=== PATIENT | male | born 1955 | race Caucasian/White ===

== ENCOUNTER 2025-05-31 06:19 | Observation (INO) ==
--- NOTE | 2025-05-31 06:40 | Emergency Department Note ---
Impression & Plan Sinus bradycardia, Cardiomyopathy, Ventricular tachycardia (paroxysmal) ED Provider Note NAME: LETY LAGUNAS AGE: 70 SEX: M : 1955 ARRIVES VIA: Walk-In INFORMANT: Patient ED PROVIDER(S): Avtar Escoto DO CHIEF COMPLAINT: Lightheaded HPI: Patient is a 70-year-old male with a past medical history of cardiomyopathy, hypertension, hyperlipidemia, and sinus bradycardia who presents to the ER for lightheadedness. He notes he is following with cardiology and just got a report back from a Zio patch. It shows that he has had over 120 episodes of V. tach. Longest run was about 8 beats. His rates are about 200. He is also had multiple episodes of SVT. He currently denies any chest pain or shortness of breath. No dysuria, urgency or frequency. He notes lightheadedness started around 5 AM and he was told to come in for any new or worsening symptoms. ADDITIONAL HISTORY OBTAINED: Per HPI Chronic Medical/Social Conditions Affecting Care: Per HPI PAST MEDICAL HISTORY:See Below PAST SURGICAL HISTORY:See Below FAMILY HISTORY:See Below SOCIAL HISTORY:See Below HOME MEDICATIONS:See Below ALLERGIES:See Below VITALS:See Below PHYSICAL EXAMINATION: GENERAL: Sitting up in bed, alert, well appearing, well nourished, no distress, non-toxic EYE EXAM: normal conjunctiva. PERRL and EOM's grossly intact. OROPHARYNX: no exudate, no erythema, lips, buccal mucosa, and tongue normal and mucous membranes are moist NECK: supple, no nuchal rigidity, no adenopathy, non-tender LUNGS: Clear to auscultation. Normal chest wall mechanics HEART: no murmurs, S1 normal and S2 normal ABDOMEN: abdomen soft, non-tender, normo-active bowel sounds, no masses, no rebound or guarding. UPPER EXTREMITIES: upper extremities are grossly normal. LOWER EXTREMITIES: No pitting edema. NEURO EXAM: Normal sensorium, cranial nerves II-XII intact, normal speech, no weakness of arms, no weakness of legs. MEDICAL DECISION MAKING: Patient is a 70-year-old male with a past medical history as described above who presents to the ER with external records which shows a Zio patch from May 22 which had over 120 episodes of V. tach. He is feeling lightheaded and was instructed to come in for any new or worsening symptoms and the lightheadedness is new. IV was established and blood work was obtained. Labs showed no significant leukocytosis or anemia. BMP with slightly elevated chloride at 110. Glucose at 100. LFTs bilirubin was unremarkable. Lipase was normal. Troponin was negative. Chest x-ray unremarkable. EKG with poor baseline. Patient was discussed with the hospitalist for further evaluation management and treatment for an observation with a history of V. tach and lightheadedness. He remained on the monitor in the ER and had no episodes of VT. Consults/Care Managements Discussions: Per MDM Triage Nursing notes reviewed. Limited review of prior medical records performed Vital Signs: reviewed and remarkable for no significant abnormalities Differential diagnosis: Cardiac ischemia, aortic dissection, pulmonary embolism, pneumothorax, pneumonia, pericarditis, myocarditis, esophageal rupture, GERD, cholecystitis, pancreatitis, musculoskeletal, as well as other pathologies. ER treatment provided: See below Diagnostics interpreted by me include EKG and cardiac monitoring as listed below: -Cardiac Monitoring: An order was placed for continuous cardiac monitoring. The monitor shows a rate of 62 with sinus rhythm. -ECG: Sinus rhythm rate of 61 Normal axis PVCs QTc 414 -Laboratory studies:Interpreted by me as stated above in MDM and shown below. Imaging studies: Xrays: As interpreted by me: Portable AP upright 1 view of the chest shows no focal infiltrate CTs show: none Procedures:none Critical Care: None Past Med/Surg History Problem List (Updated 05/31/25 @ 10:42 by Avtar Escoto DO) Ventricular tachycardia (paroxysmal) (Acute) Dizziness Moderate aortic regurgitation Cardiomyopathy (Acute) Sinus bradycardia (Acute) Systolic hypertension Hyperlipidemia Sleeping difficulty Hypertriglyceridemia Medical History (HFpEF) heart failure with preserved ejection fraction CAD (coronary artery disease) Nonobstructive History of BPH History of COVID-19 ~2021, no residual symptoms History of hypertension Hx of colonic polyps Hx of hyperlipidemia Hx of sinus bradycardia Hx of temporomandibular joint disorder Occasional clicking/crunching, no locking Prediabetes Per cardio records Surgical History Hx of arthroscopy of right knee Hx of cardiac cath (2020) No stents Hx of colonoscopy S/P knee surgery duplicate S/P tonsillectomy S/P wisdom tooth extraction Family History Brother Non Hodgkin's lymphoma Father Myocardial infarction Denies family history of Colon cancer Ovarian cancer Prostate cancer Breast cancer Social History Smoking Status: Never smoker Second Hand Exposure: No; Do You Dip or Chew Tobacco: No; Hx Alcohol Use: No Hx Substance Use: No Preferred Language: Macedonian Communication Ability: Effective Visual Impairment: No Limitations 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 Beliefs That Will Affect Care: None marital status: Current Living Situation: Spouse current occupational status: retired Feels Safe at Home: Yes Childhood Exposure to Second-Hand Smoke: No Dental Care, Regularly: Yes Physical Activity Frequency: 5-6 Times per Week Seatbelt Use: always Sunscreen Use: Yes Assistive Devices: Glasses Allergies Allergies Allergy/AdvReac Type Severity Reaction Status Date / Time No Known Allergies Allergy Verified 03/27/25 07:10 Home Meds Home Medications Medication Instructions Recorded Confirmed aspirin 81 mg tablet,delayed 81 mg PO QAM 08/22/19 05/31/25 release atorvastatin 40 mg tablet 40 mg PO QAM 03/18/25 05/31/25 multivitamin 1 tab PO QAM 03/18/25 05/31/25 sacubitril 24 mg-valsartan 26 mg 1 tab PO BID 03/18/25 05/31/25 tablet (Entresto) terazosin 2 mg capsule 2 mg PO HS 03/18/25 05/31/25 metoprolol succinate 25 mg 12.5 mg PO DAILY 05/31/25 05/31/25 tablet,extended release 24 hr Results & Data (ED) Vital Signs Vital Signs - 24 hr 05/31/25 06:22 05/31/25 06:28 05/31/25 06:28 Temperature 36.4 C L 36.5 C Temperature Source Oral Oral Pulse Rate - Lying Pulse Rate - Sitting Pulse Rate - Standing Pulse Rate 58 L Pulse Rate [Right Finger] 61 Pulse Rate from SpO2 Sensor Respiratory Rate 20 16 Respiratory Effort / Characteristics Non-Labored Spontaneous Non-Labored Spontaneous Respiratory Depth Normal Normal Respiratory Pattern Regular Blood Pressure - Lying Blood Pressure - Sitting Blood Pressure- Standing Blood Pressure 122/63 Blood Pressure [Right Arm] 141/61 H Blood Pressure Mean 82 Blood Pressure Mean [Right Arm] 87 Pulse Oximetry 95 95 94 Oxygen Delivery Method Room Air Room Air Room Air Sepsis Recent Fever Within 48 Hours No Sepsis New/Unexplained Change in Mental Status No Sepsis Action Taken by Nursing No Action Required 05/31/25 06:28 05/31/25 07:30 05/31/25 08:30 Temperature Temperature Source Pulse Rate - Lying Pulse Rate - Sitting Pulse Rate - Standing Pulse Rate 56 L 53 L Pulse Rate [Right Finger] 48 L Pulse Rate from SpO2 Sensor Respiratory Rate 18 18 22 Respiratory Effort / Characteristics Non-Labored Spontaneous Respiratory Depth Normal Respiratory Pattern Regular Blood Pressure - Lying Blood Pressure - Sitting Blood Pressure- Standing Blood Pressure Blood Pressure [Right Arm] 133/56 L Blood Pressure Mean Blood Pressure Mean [Right Arm] 81 Pulse Oximetry 94 94 Oxygen Delivery Method Room Air Room Air Sepsis Recent Fever Within 48 Hours Sepsis New/Unexplained Change in Mental Status Sepsis Action Taken by Nursing 05/31/25 08:33 05/31/25 08:34 05/31/25 08:42 Temperature Temperature Source Pulse Rate - Lying Pulse Rate - Sitting Pulse Rate - Standing Pulse Rate 58 L 56 L Pulse Rate [Right Finger] Pulse Rate from SpO2 Sensor 55 L 56 L Respiratory Rate 24 19 Respiratory Effort / Characteristics Respiratory Depth Respiratory Pattern Blood Pressure - Lying Blood Pressure - Sitting Blood Pressure- Standing Blood Pressure 129/76 Blood Pressure [Right Arm] Blood Pressure Mean 93 Blood Pressure Mean [Right Arm] Pulse Oximetry 95 95 Oxygen Delivery Method Sepsis Recent Fever Within 48 Hours Sepsis New/Unexplained Change in Mental Status Sepsis Action Taken by Nursing 05/31/25 08:48 05/31/25 08:51 05/31/25 08:51 Temperature Temperature Source Pulse Rate - Lying Pulse Rate - Sitting Pulse Rate - Standing Pulse Rate 51 L Pulse Rate [Right Finger] Pulse Rate from SpO2 Sensor 54 L Respiratory Rate 21 Respiratory Effort / Characteristics Respiratory Depth Respiratory Pattern Blood Pressure - Lying Blood Pressure - Sitting Blood Pressure- Standing Blood Pressure 120/81 Blood Pressure [Right Arm] Blood Pressure Mean 89 Blood Pressure Mean [Right Arm] Pulse Oximetry 97 97 Oxygen Delivery Method Room Air Sepsis Recent Fever Within 48 Hours Sepsis New/Unexplained Change in Mental Status Sepsis Action Taken by Nursing 05/31/25 08:54 05/31/25 08:56 05/31/25 08:56 Temperature Temperature Source Pulse Rate - Lying 52 L Pulse Rate - Sitting 59 L Pulse Rate - Standing 61 Pulse Rate 50 L Pulse Rate [Right Finger] Pulse Rate from SpO2 Sensor 50 L Respiratory Rate 19 Respiratory Effort / Characteristics Respiratory Depth Respiratory Pattern Blood Pressure - Lying 114/61 Blood Pressure - Sitting 133/72 Blood Pressure- Standing 149/67 H Blood Pressure 114/61 Blood Pressure [Right Arm] Blood Pressure Mean 77 Blood Pressure Mean [Right Arm] Pulse Oximetry 97 Oxygen Delivery Method Sepsis Recent Fever Within 48 Hours Sepsis New/Unexplained Change in Mental Status Sepsis Action Taken by Nursing 05/31/25 08:57 05/31/25 08:59 05/31/25 09:00 Temperature Temperature Source Pulse Rate - Lying Pulse Rate - Sitting Pulse Rate - Standing Pulse Rate 63 57 L Pulse Rate [Right Finger] Pulse Rate from SpO2 Sensor 66 58 L Respiratory Rate 24 16 Respiratory Effort / Characteristics Respiratory Depth Respiratory Pattern Blood Pressure - Lying Blood Pressure - Sitting Blood Pressure- Standing Blood Pressure 133/72 Blood Pressure [Right Arm] Blood Pressure Mean 98 Blood Pressure Mean [Right Arm] Pulse Oximetry 97 97 Oxygen Delivery Method Sepsis Recent Fever Within 48 Hours Sepsis New/Unexplained Change in Mental Status Sepsis Action Taken by Nursing 05/31/25 09:00 05/31/25 09:01 05/31/25 09:01 Temperature Temperature Source Pulse Rate - Lying Pulse Rate - Sitting Pulse Rate - Standing Pulse Rate Pulse Rate [Right Finger] Pulse Rate from SpO2 Sensor Respiratory Rate Respiratory Effort / Characteristics Respiratory Depth Respiratory Pattern Blood Pressure - Lying Blood Pressure - Sitting Blood Pressure- Standing Blood Pressure 150/79 H 149/67 H 149/67 H Blood Pressure [Right Arm] Blood Pressure Mean 109 112 112 Blood Pressure Mean [Right Arm] Pulse Oximetry Oxygen Delivery Method Sepsis Recent Fever Within 48 Hours Sepsis New/Unexplained Change in Mental Status Sepsis Action Taken by Nursing 05/31/25 09:03 05/31/25 09:12 05/31/25 09:21 Temperature Temperature Source Pulse Rate - Lying Pulse Rate - Sitting Pulse Rate - Standing Pulse Rate 63 52 L 57 L Pulse Rate [Right Finger] Pulse Rate from SpO2 Sensor 72 52 L 40 L Respiratory Rate 18 17 16 Respiratory Effort / Characteristics Respiratory Depth Respiratory Pattern Blood Pressure - Lying Blood Pressure - Sitting Blood Pressure- Standing Blood Pressure Blood Pressure [Right Arm] Blood Pressure Mean Blood Pressure Mean [Right Arm] Pulse Oximetry 97 94 94 Oxygen Delivery Method Sepsis Recent Fever Within 48 Hours Sepsis New/Unexplained Change in Mental Status Sepsis Action Taken by Nursing 05/31/25 09:30 05/31/25 09:30 05/31/25 09:42 Temperature Temperature Source Pulse Rate - Lying Pulse Rate - Sitting Pulse Rate - Standing Pulse Rate 51 L 50 L Pulse Rate [Right Finger] Pulse Rate from SpO2 Sensor 52 L 48 L Respiratory Rate 16 16 Respiratory Effort / Characteristics Respiratory Depth Respiratory Pattern Blood Pressure - Lying Blood Pressure - Sitting Blood Pressure- Standing Blood Pressure 114/55 L Blood Pressure [Right Arm] Blood Pressure Mean 74 Blood Pressure Mean [Right Arm] Pulse Oximetry 94 94 Oxygen Delivery Method Sepsis Recent Fever Within 48 Hours Sepsis New/Unexplained Change in Mental Status Sepsis Action Taken by Nursing 05/31/25 09:51 05/31/25 10:00 05/31/25 10:00 Temperature Temperature Source Pulse Rate - Lying Pulse Rate - Sitting Pulse Rate - Standing Pulse Rate 65 47 L Pulse Rate [Right Finger] Pulse Rate from SpO2 Sensor 64 48 L Respiratory Rate 20 16 Respiratory Effort / Characteristics Respiratory Depth Respiratory Pattern Blood Pressure - Lying Blood Pressure - Sitting Blood Pressure- Standing Blood Pressure 107/51 L Blood Pressure [Right Arm] Blood Pressure Mean 69 Blood Pressure Mean [Right Arm] Pulse Oximetry 96 93 Oxygen Delivery Method Sepsis Recent Fever Within 48 Hours Sepsis New/Unexplained Change in Mental Status Sepsis Action Taken by Nursing 05/31/25 10:12 05/31/25 10:34 Temperature Temperature Source Pulse Rate - Lying Pulse Rate - Sitting Pulse Rate - Standing Pulse Rate 45 L Pulse Rate [Right Finger] Pulse Rate from SpO2 Sensor 42 L Respiratory Rate 15 Respiratory Effort / Characteristics Respiratory Depth Respiratory Pattern Blood Pressure - Lying Blood Pressure - Sitting Blood Pressure- Standing Blood Pressure Blood Pressure [Right Arm] Blood Pressure Mean Blood Pressure Mean [Right Arm] Pulse Oximetry 94 Oxygen Delivery Method Room Air Sepsis Recent Fever Within 48 Hours Sepsis New/Unexplained Change in Mental Status Sepsis Action Taken by Nursing Laboratory Data 05/31/25 06:40 05/31/25 06:40 Lab Results 05/31/25 05/31/25 05/31/25 Range/Units 06:40 06:54 08:50 WBC 6.53 (4.8-10.8) K/ul RBC 4.86 (4.70-6.10) M/uL Hgb 15.3 (14.0-18.0) g/dl POC Hgb 14.3 (14.0-18.0) g/dl Hct 43.9 (42.0-52.0) % POC Hct 42 (42-52) % MCV 90.3 (80.0-100.0) fL MCH 31.5 (25.0-34.0) pg MCHC 34.9 (32.0-36.0) g/dL RDW Std Deviation 41.4 (36.4-46.3) fL RDW Coeff of Vicky 12.7 (11.5-14.5) % Plt Count 258 (130-400) K/uL MPV 9.6 (9.4-12.4) fL Immature Gran % (Auto) 0.2 % Neut % (Auto) 53.1 % Lymph % (Auto) 31.5 % [place] % (Auto) 9.5 % Eos % (Auto) 4.6 % Baso % (Auto) 1.1 % Neut # (Auto) 3.47 (1.40-6.50) K/uL Lymph # (Auto) 2.06 (1.20-3.40) K/uL [place] # (Auto) 0.62 H (0.11-0.59) K/uL Eos # (Auto) 0.30 (0.00-0.50) K/uL Baso # (Auto) 0.07 (0.00-0.20) K/uL Immature Gran # (Auto) 0.01 (0.01-0.20) K/uL POC Sodium 142 (135-144) mmol/L Sodium 141 (136-145) mmol/L POC Potassium 3.9 (3.3-5.0) mmol/L Potassium 4.1 (3.5-5.1) mmol/L POC Chloride 109 (101-112) mmol/L Chloride 110 H (98-107) mmol/L Carbon Dioxide 23 (21-32) mmol/L POC Total CO2 20 L (24-31) mmol/L Anion Gap 8 (3-11) POC Anion Gap 18.0 (16-25) mmol/L POC BUN 20 H (7-18) mg/dl BUN 19 (6-23) mg/dl Creatinine 0.88 (0.6-1.4) mg/dl POC Creatinine 0.9 (0.6-1.3) mg/dl Est Cr Clr Drug Dosing 98.0 ml/min eGFR 92.51 BUN/Creatinine Ratio 21.6 H (10-20) Glucose 101 H (70-99(Fasting)) mg/dl POC Glucose (other) 101 H (70-99) mg/dl Calcium 9.0 (8.6-10.3) mg/dl POC Ioniz Calcium Aide 1.16 (1.12-1.32) mmol/l Total Bilirubin 1.3 H (0.2-1.0) mg/dl AST 24 (13-39) U/L ALT 23 (7-52) U/L Alkaline Phosphatase 62 (34-104) U/L Troponin I High Sens 3.1 3.2 (0-20) pg/ml Total Protein 6.8 (6.0-8.3) gm/dl Albumin 4.3 (3.4-5.0) gm/dl Globulin 2.5 (2.5-4.0) gm/dl Albumin/Globulin Ratio 1.7 (0.9-2) Lipase 22 (11-82) U/L Administered Medications Discontinued Medications Aspirin (Aspirin Chew 324 Mg) 324 mg PO NOW STA Stop: 05/31/25 06:39 Last Admin: 05/31/25 06:57 Dose: 324 mg Documented By: ESTRADA Sodium Chloride (Nss) 500 mls @ 999 mls/hr IV .Q31M ONE Stop: 05/31/25 07:08 Last Infusion: 05/31/25 07:26 Dose: Infused Documented By: Admin: 05/31/25 06:55 Dose: 999 mls/hr Documented By: [facility] Imaging Data Radiologist's Impression: Chest X-Ray 05/31/25 06:28 EXAM: XR chest 1V portable CLINICAL HISTORY: Chest pain, nonspecific TECHNIQUE: An X-ray image of the chest was obtained in the AP projection. COMPARISON: Compared to the prior study dated 11/21/2023. FINDINGS: Pulmonary Parenchyma: The lungs are clear bilaterally. There is no evidence of consolidation, collapse, or focal opacities. No pulmonary nodules are identified. There is no evidence of pleural effusion or pleural thickening. Heart and Mediastinum: The heart size and shape are normal. There is no mediastinal widening or mass. No hilar or mediastinal lymphadenopathy is identified. Bony Thorax: The bony thorax appears intact without fractures or deformities. Soft Tissues: The soft tissues overlying the chest wall are unremarkable. IMPRESSION: 1. Normal chest X-ray. No acute cardiopulmonary abnormalities are identified. 2. No intervakl changes were seen when compared to the prior imagong. Electronically signed by Luis Kuo 05-31-2025 08:38 AM Discharge Plan Visit Data Chief Complaint: Arrhythmia/Palpitations Stated Complaint: IRREG HEART BEAT ED Provider: Avtar Escoto Discharge Problem: Sinus bradycardia, Cardiomyopathy, Ventricular tachycardia (paroxysmal) Patient Disposition: Admitted As Inpatient Condition: Fair Discharge Instructions Interventions: ED Discharge Assessment Last Done: 05/31/25 10:34 Forms Stand Alone Forms: [employer] Prescriptions Prescriptions: No Action aspirin 81 mg tablet,delayed release (DR/EC) 81 mg PO QAM Patient Comments: 05/31- otc unable to verify multivitamin Tablet 1 tab PO QAM Patient Comments: 05/31- otc unable to verify terazosin 2 mg Capsule 2 mg PO HS sacubitril-valsartan [Entresto] 24-26 mg Tablet 1 tab PO BID Patient Comments: 03/18/25-still waiting for script to arrive in mail. atorvastatin 40 mg tablet 40 mg PO QAM metoprolol succinate 25 mg tablet extended release 24 hr 12.5 mg PO DAILY Referrals Referrals: Xander Arnold DO [Primary Care Provider] - Discharge Problem: Cardiomyopathy Qualifiers: Cardiomyopathy type: unspecified Qualified Code(s): I42.9 - Cardiomyopathy, unspecified
[2025-05-31] MEDS: SODIUM CHLORIDE 0.9% 500 ML IV ONE (06:55)
[2025-05-31] MEDS: ASPIRIN CHEW 324 MG PO STA (06:57)
[2025-05-31 06:59] LABS: Hematocrit (blood only) 43.9 % (42.0-52.0); Hemoglobin 15.3 g/dl (14.0-18.0); Immature Granulocytes # (auto) 0.01 K/uL (0.01-0.20); Immature Granulocytes % (auto) 0.2 %; Mean Corpuscular Hemoglobin 31.5 pg (25.0-34.0); Mean Corpuscular Volume 90.3 fL (80.0-100.0); Platelet Count 258 K/uL (130-400); RDW Standard Deviation 41.4 fL (36.4-46.3); Red Blood Count 4.86 M/uL (4.70-6.10); White Blood Count 6.53 K/ul (4.8-10.8)
[2025-05-31 07:22] LABS: Alanine Aminotransferase 23.0 U/L (7-52); Albumin Globulin Ratio 1.7 (0.9-2); Albumin Level 4.3 gm/dl (3.4-5.0); Alkaline Phosphatase 62.0 U/L (34-104); Anion Gap 8.0 (3-11); Bilirubin,Total 1.3 mg/dl (0.2-1.0); Blood Urea Nitrogen 19.0 mg/dl (6-23); Calcium 9.0 mg/dl (8.6-10.3); Carbon Dioxide 23.0 mmol/L (21-32); Chloride 110.0 mmol/L (98-107); Creatinine Clr Calc Pharmacy 98.0 ml/min; Globulin 2.5 gm/dl (2.5-4.0); Glucose 101.0 mg/dl (70-99(Fasting)); Lipase 22.0 U/L (11-82); Potassium 4.1 mmol/L (3.5-5.1); Sodium 141.0 mmol/L (136-145); Total Protein 6.8 gm/dl (6.0-8.3)
[2025-05-31] MEDS ORDERED: ACETAMINOPHEN 325 MG TAB PO PRN (08:18)
[2025-05-31] MEDS ORDERED: POLYETHYLENE (MIRALAX) 17 GM PACK PO PRN (08:18)
--- NOTE | 2025-05-31 08:35 | History & Physical Report ---
Date of Service May 31, 2025 Assessment & Plan (1) Dizziness: Plan Assessment/plan Dizziness/presyncope History of PVCs/NSVT/SVT History of nonischemic cardiomyopathy Patient presents to the hospital due to episode of dizziness/presyncope. High sensitive troponin is negative X 1 Recent Zio patch results as above in HnP Echo in February 2025 shows EF of 50%; mildly concentric LVH, borderline diffuse left ventricular hypokinesis, left atrium severely enlarged, moderate 2-3+ aortic valve regurgitation. Proximal ascending thoracic aorta mildly enlarged to 4.1. Repeat high sensitive troponin; monitor on telemetry for any abnormal rhythms/pauses. Patient currently has frequent PVCs Obtain Orthostatic vitals every 6 hr Continue on home dose of metoprolol Cardiology consulted; appreciate any further recommendation Hyperlipidemiacontinue on Lipitor Nonobstructive CADcontinue on aspirin, Lipitor Nonischemic cardiomyopathy with improved EFecho as above; continue on Entresto, metoprolol BPHcontinue on terazosin Full code DVT prophylaxis SCDs time spent evaluating patient, direct bedside care, chart review, placing order s, interpretation of diagnostic studies, discussion with consultants, patient, and family members, as well as other required patient management activities is 75minutes Please note the above document was generated using voice recognition software. It may contain grammatical, syntax or spelling errors. Any formal questions or concerns about the content, text or information contained within the body of this dictation should be directly addressed to the provider for clarification History of Present Illness Chief Complaint: Dizziness for 1 day Primary Care Provider: Xander Arnold, History obtained from interview with the patient, and discussion with the ED provider and review of the chart Past medical history of nonischemic cardiomyopathy with return to normal LV function, mild nonobstructive CAD, hypertension, hyperlipidemia, left anterior fascicular block, sinus bradycardia, minimally enlarged aortic root and ascending aorta, moderate aortic insufficiency, frequent ventricular ectopy, nonsustained ventricular tachycardia, BPH Patient has recently undergone Zio patch from May 08 to May 23, 2025; found to have 135 brief runs of NSVT with longest of which 8 beats in duration with no associated symptoms. 135 brief episodes of SVT were observed; the majority of symptoms correlated with sinus rhythm and sensed PVCs. 3.3% PVC burden Patient reports that he had episode of dizziness today morning around 5 AM; usually the dizziness will resolve when he lays down but it persisted today which prompted him to come to the ED. In the ED, he denies any dizziness, chest pain, shortness of breath at the present time. He has been following with cardiology regarding PVCs/SVT; was recently referred to EP. Allergies Allergy/AdvReac Type Severity Reaction Status Date / Time No Known Allergies Allergy Verified 03/27/25 07:10 Home Medications Medication Instructions Recorded Confirmed Type aspirin 81 mg tablet,delayed 81 mg PO QAM 08/22/19 05/31/25 History release atorvastatin 40 mg tablet 40 mg PO QAM 03/18/25 05/31/25 History multivitamin 1 tab PO QAM 03/18/25 05/31/25 History sacubitril 24 mg-valsartan 26 mg 1 tab PO BID 03/18/25 05/31/25 History tablet (Entresto) terazosin 2 mg capsule 2 mg PO HS 03/18/25 05/31/25 History metoprolol succinate 25 mg 12.5 mg PO DAILY 05/31/25 05/31/25 History tablet,extended release 24 hr Past Med/Surg History Problem List (Updated 05/31/25 @ 10:42 by Avtar Escoto DO) Ventricular tachycardia (paroxysmal) (Acute) Dizziness Moderate aortic regurgitation Cardiomyopathy (Acute) Sinus bradycardia (Acute) Systolic hypertension Hyperlipidemia Sleeping difficulty Hypertriglyceridemia Medical History (HFpEF) heart failure with preserved ejection fraction CAD (coronary artery disease) Nonobstructive History of BPH History of COVID-19 ~2021, no residual symptoms History of hypertension Hx of colonic polyps Hx of hyperlipidemia Hx of sinus bradycardia Hx of temporomandibular joint disorder Occasional clicking/crunching, no locking Prediabetes Per cardio records Surgical History Hx of arthroscopy of right knee Hx of cardiac cath (2020) No stents Hx of colonoscopy S/P knee surgery duplicate S/P tonsillectomy S/P wisdom tooth extraction Family History Brother Non Hodgkin's lymphoma Father Myocardial infarction Denies family history of Colon cancer Ovarian cancer Prostate cancer Breast cancer Social History Smoking Status: Never smoker Second Hand Exposure: No; Do You Dip or Chew Tobacco: No; Hx Alcohol Use: No Hx Substance Use: No Preferred Language: [place] Communication Ability: Effective Visual Impairment: No Limitations Hearing Ability: Normal Cable Television Technician Required: No Beliefs That Will Affect Care: None marital status: Current Living Situation: Spouse current occupational status: retired Feels Safe at Home: Yes Childhood Exposure to Second-Hand Smoke: No Dental Care, Regularly: Yes Physical Activity Frequency: 5-6 Times per Week Seatbelt Use: always Sunscreen Use: Yes Assistive Devices: Glasses Review of Systems Review of Systems: All systems reviewed & are unremarkable except as noted in Subjective Physical Exam Physical Exam: On physical examination; Constitutional: WD/WN, vitals as above, NAD, sitting up in bed, pleasant, conv ersing easilyn Respiratory: normal respiratory effort, lungs clear to auscultation, no wheeze, rales, rhonchi. Normal insp/exp effort, no accessory muscle use Cardiovascular: RRR, no murmur, no edema Vessels: no JVD or carotid bruit Chest: normal inspection of chest Abdomen: normal bowel sounds, soft, nontender, no hepatosplenomegaly Musculoskeletal: no cyanosis or clubbing, extremities motor strength 5/5 Skin: no rashes, warm and dry normal turgor Neurologic: PERRL, EOMI, accommodation nl, no face palsy, no dysarthria CN's II- XI intact bilaterally and moves all extremities Psychiatric: A+Ox3, euthymic affect Results & Data Results & Data Vital Signs (Past 12 Hours) Vital Signs Temp Pulse Pulse Resp BP BP Pulse Ox 05/31/25 07:30 48 L 18 133/56 L 94 05/31/25 06:28 56 L 18 94 05/31/25 06:28 36.5 C 61 16 141/61 H 94 05/31/25 06:28 95 05/31/25 06:22 36.4 C L 58 L 20 122/63 95 O2 Del Method 05/31/25 07:30 Room Air 05/31/25 06:28 Room Air 05/31/25 06:28 Room Air 05/31/25 06:28 Room Air 05/31/25 06:22 Room Air
--- NOTE | 2025-05-31 08:38 | XRay Report ---
EXAM: XR chest 1V portable CLINICAL HISTORY: Chest pain, nonspecific TECHNIQUE: An X-ray image of the chest was obtained in the AP projection. COMPARISON: Compared to the prior study dated 11/21/2023. FINDINGS: Pulmonary Parenchyma: The lungs are clear bilaterally. There is no evidence of consolidation, collapse, or focal opacities. No pulmonary nodules are identified. There is no evidence of pleural effusion or pleural thickening. Heart and Mediastinum: The heart size and shape are normal. There is no mediastinal widening or mass. No hilar or mediastinal lymphadenopathy is identified. Bony Thorax: The bony thorax appears intact without fractures or deformities. Soft Tissues: The soft tissues overlying the chest wall are unremarkable. IMPRESSION: 1. Normal chest X-ray. No acute cardiopulmonary abnormalities are identified. 2. No intervakl changes were seen when compared to the prior imagong. Electronically signed by Luis Kuo 05-31-2025 08:38 AM
[2025-05-31] MEDS ORDERED: METOPROLOL SUCC 25MG EXT REL TAB PO SCH ×2 (10:56→21:00)
[2025-05-31 11:01] VITALS: BP 129/73; PULSE 51; RESP 14; TEMP 98.2; O2SAT 97
--- NOTE | 2025-05-31 11:18 | Cardiology Consultation ---
Date of Consultation May 31, 2025 Assessment & Plan (1) Dizziness: (2) Sinus bradycardia: (3) Frequent PVCs: (4) Nonsustained ventricular tachycardia: (5) Moderate aortic regurgitation: (6) Nonischemic dilated cardiomyopathy: Plan Assessment: 70 year old male with history of bradycardia, frequent PVC's, and episodes of idioventricular rhythm that presented to the ER for ongoing dizziness. Cardiology consulted for further evaluation/recommendations. Plan: 1. Dizziness 2. Sinus Bradycardia 3. Nonsustained ventricular tachycardia 4. Idioventricular rhythm. -Patient with long standing history of conduction system disease as outlined. Recent protracted cardiac monitoring through a 14 day zio shows resting bradycardia, frequent PVCs and non-sustained VT. Patient was seen outpatient with plan to remain on low dose Toprol xl and an EP referral was placed to discuss next treatment options -patient felt increased dizziness on the day of admission, but no near syncopal symptoms. Patient is symptom free at this time. -Review of telemetry shows sinus bradycardia with frequent multi-focal PVCs and a single 4 beat nonsustained run of ventricular ecotpy. -Labs show stable electrolytes -patient has had a prior ischemic workup due to reduced LVEF in past with increased ventricular ectopy. Cardiac cath dated 09/2020 shows mild non- obstructive disease. Most recent echocardiogram shows normal heart pump function. -Case discussed with Dr. Ortiz, please see his attestation for further recommendations on course of action. -Continue to monitor on telemetry -Continue Toprol xl 12.5mg QD. 4. Moderate aortic regurgitation -Euvolemic on exam -Patient had a Transesophageal echocardiogram 03/27/2025 here at [facility] which confirms moderate regurgitation. Plan is to continue routine echocardiogram surveillance outpatient. 5. Nonischemic cardiomyopathy -Negative ischemic work up september 2020, cardiac cath as documented under diagnostics -LVEF remains preserved, known moderate AI -Blood pressures stable. -Continue ASA 81mg, Atorvastatin 40mg, Entresto 26/24mg PO BID, Toprol xl 12.5mg Daily -Patient continues on Terazosin for BPH and additional BP control. Case has been discussed with Dr. Ortiz. Further recommendations regarding plan of care as per his assessment. I spent a total of 55 minutes on the date of service in preparation, delivery, documentation of the care provided to the patient excluding any time spent in the performance of separately billed services. RENO Beaulieu [facility] Supervising Physician Co-Signing Physician Notes Attending attestation: Case reviewed with the advanced practitioner. I have personally performed a history and physical examination on the patient. I have reviewed the advanced practitioner's documentation on the date of service referenced in note, and I agree with, and take responsibility for the plan of care. Subjective: Patient describes being physically active at baseline. Earlier this week he was exercising at the gym performing resistance training and noted generalized malaise perhaps a little bit of dizziness but symptoms that were not more profound than what he had felt previously. Yesterday he was able to tolerate doing yard work. Exam: Cardiovascular: Regular rhythm with occasional ectopy, 1/6 diastolic murmur, no edema Data: EKG performed 05/31/2025 and interpreted independently reveals sinus rhythm at 61 bpm with occasional PVCs. Poor R wave progression. Recent Zio patch monitor worn in April 2025, reviewed independently again by the undersigned today, and reviewed with electrophysiology Revealing predominant rhythm of sinus rhythm with average rate of 63 bpm, with wide-complex runs. Isolated premature ventricular contractions were of moderate frequency, 3.3% of the total QRS complexes, wide-complex rhythm noted but felt predominantly be an accelerated idioventricular rhythm in the 60s rather than ventricular tachycardia Telemetry reviewed during hospital stay with predominant rhythm of sinus rhythm in the 70s with frequent premature ventricular contractions. Episodes of idioventricular rhythm at 60 bpm noted a single 4 beat ventricular run Impression/ Plan: Tachycardia bradycardia syndrome with PVCs, idioventricular rhythm, baseline sinus rhythm in the 60s precluding titration of AV ana blockers. History of nonischemic cardiomyopathy with normalization of LVEF Moderate aortic regurgitation in recent NELLIE * Continue present medication therapy including aspirin 81 mg daily, atorvastatin 40 mg daily, Entresto / 1 tablet twice daily, metoprolol succinate 12.5 mg daily. * Continue terazosin 2 mg by mouth daily at bedtime for treatment of prostatism * Telemetry findings and clinical symptoms reassuring, without significant change compared to previous cardiac monitors performed as an outpatient in February, and April 2025. No dayne syncope. * Patient stable for discharge from cardiac perspective with plans for expedited outpatient electrophysiology evaluation to take place on 06/03/2025, patient arrival 7:30 AM for a 7:[address] Adams to discuss treatment options such as implantation of a permanent pacemaker. Buck Ortiz DO History of Present Illness Reason for Consultation: dizziness, hx of NSVT, SVT Requesting Physician: Zainab hospitalist Attending Physician: Solo Taylor MD History of Present Illness HPI: patient is a 70 year old male with PMHx as outlined below that presented to the ER with dizziness and generalized malaise. Patient was recently seen in outpatient cardiology 05/26/2025 to review a recent ZIO monitor. Patient carries a history of sinus bradycardia, Frequent PVC's, and runs of SVT. He has been on low dose Metoprolol succinate 12.5mg daily. patient endorses ongoing dizziness, and feeling that his "equilibrium" is off which is not new. At time of his aleks ointment, the recommendation was made to continue current Toprol xl and referral was placed for Electrophysiology. Patient was advised that while awaiting an appointment to be scheduled that if he should feel worse to present to the ER. Patient states on the date of admission he had ongoing dizziness, not relived by laying down which normally helps and therefore prompted him to present. Patient is resting out of bed in a chair at time of my examination. Denies any chest pain, pressure or palpitations. Endorses feeling a "rare skipped beat". No dizziness or near syncope at this time. Cardiac Problem list: 1. Nonischemic cardiomyopathy with returned to normal LV function 2. Mild nonobstructive coronary disease on cardiac catheterization October 12, 2020 3. Hypertension 4. Hyperlipidemia /hypertriglyceridemia 5. Left anterior fascicular block 6. Sinus bradycardia 7. Minimally enlarged aortic root and ascending aorta at 4.2 cm per echo 05/2023. 8. Moderate aortic insufficiency 9. Frequent ventricular ectopy, nonsustained ventricular tachycardia Allergies Allergy/AdvReac Type Severity Reaction Status Date / Time No Known Allergies Allergy Verified 03/27/25 07:10 Home Medications Medication Instructions Recorded Confirmed Type aspirin 81 mg tablet,delayed 81 mg PO QAM 08/22/19 05/31/25 History release atorvastatin 40 mg tablet 40 mg PO QAM 03/18/25 05/31/25 History multivitamin 1 tab PO QAM 03/18/25 05/31/25 History sacubitril 24 mg-valsartan 26 mg 1 tab PO BID 03/18/25 05/31/25 History tablet (Entresto) terazosin 2 mg capsule 2 mg PO HS 03/18/25 05/31/25 History metoprolol succinate 25 mg 12.5 mg PO DAILY 05/31/25 05/31/25 History tablet,extended release 24 hr Patient History Medical History (HFpEF) heart failure with preserved ejection fraction CAD (coronary artery disease) Nonobstructive History of BPH History of COVID-19 ~2021, no residual symptoms History of hypertension Hx of colonic polyps Hx of hyperlipidemia Hx of sinus bradycardia Hx of temporomandibular joint disorder Occasional clicking/crunching, no locking Prediabetes Per cardio records Surgical History Hx of arthroscopy of right knee Hx of cardiac cath (2020) No stents Hx of colonoscopy S/P knee surgery duplicate S/P tonsillectomy S/P wisdom tooth extraction Family History Brother Non Hodgkin's lymphoma Father Myocardial infarction Denies family history of Colon cancer Ovarian cancer Prostate cancer Breast cancer Social History Smoking Status: Never smoker Second Hand Exposure: No; Do You Dip or Chew Tobacco: No; Tobacco Cessation Education Requested by Patient: No Hx Alcohol Use: No Hx Substance Use: No Preferred Language: Khmer Communication Ability: Effective Visual Impairment: No Limitations Hearing Ability: Normal Manager Shop Required: No Beliefs That Will Affect Care: None marital status: Current Living Situation: Alone current occupational status: retired Other Information That Helps Us Care for You: No Feels Safe at Home: Yes Safety Concerns: Feels Safe At This Time Childhood Exposure to Second-Hand Smoke: No Dental Care, Regularly: Yes Physical Activity Frequency: 5-6 Times per Week Seatbelt Use: always Sunscreen Use: Yes Assistive Devices: None Review of Systems Review of Systems: All systems reviewed & are unremarkable except as noted in HPI & below Physical Exam Constitutional: well developed and well nourished; no acute distress and not ill appearing Neck: normal visual inspection and trachea midline Respiratory: normal respiratory effort, lungs clear to auscultation Cardiovascular: Rate/Rhythm: + bradycardic Heart Sounds: normal S1 and + murmur Vessels: dorsalis pedis pulses present; no JVD Skin: no rashes, warm and dry Psychiatric: A+Ox3, euthymic affect Results & Data Vital Signs (Past 12 Hours) Vital Signs Temp Pulse Pulse Resp BP BP Pulse Ox 05/31/25 10:57 36.8 C 51 L 14 129/73 97 05/31/25 10:34 05/31/25 10:12 45 L 15 94 05/31/25 10:00 47 L 16 93 05/31/25 10:00 107/51 L 05/31/25 09:51 65 20 96 05/31/25 09:42 50 L 16 94 05/31/25 09:30 51 L 16 94 05/31/25 09:30 114/55 L 05/31/25 09:21 57 L 16 94 05/31/25 09:12 52 L 17 94 05/31/25 09:03 63 18 97 05/31/25 09:01 149/67 H 05/31/25 09:01 149/67 H 05/31/25 09:00 150/79 H 05/31/25 09:00 57 L 16 97 05/31/25 08:59 133/72 05/31/25 08:57 63 24 97 05/31/25 08:56 114/61 05/31/25 08:54 50 L 19 97 05/31/25 08:51 120/81 05/31/25 08:51 51 L 21 97 05/31/25 08:48 97 05/31/25 08:42 56 L 19 95 05/31/25 08:34 129/76 05/31/25 08:33 58 L 24 95 05/31/25 08:30 53 L 22 05/31/25 07:30 48 L 18 133/56 L 94 05/31/25 06:28 56 L 18 94 05/31/25 06:28 36.5 C 61 16 141/61 H 94 05/31/25 06:28 95 05/31/25 06:22 36.4 C L 58 L 20 122/63 95 O2 Del Method 05/31/25 10:57 Room Air 05/31/25 10:34 Room Air 05/31/25 10:12 05/31/25 10:00 05/31/25 10:00 05/31/25 09:51 05/31/25 09:42 05/31/25 09:30 05/31/25 09:30 05/31/25 09:21 05/31/25 09:12 05/31/25 09:03 05/31/25 09:01 05/31/25 09:01 05/31/25 09:00 05/31/25 09:00 05/31/25 08:59 05/31/25 08:57 05/31/25 08:56 05/31/25 08:54 05/31/25 08:51 05/31/25 08:51 05/31/25 08:48 Room Air 05/31/25 08:42 05/31/25 08:34 05/31/25 08:33 05/31/25 08:30 05/31/25 07:30 Room Air 05/31/25 06:28 Room Air 05/31/25 06:28 Room Air 05/31/25 06:28 Room Air 05/31/25 06:22 Room Air Laboratory Results Cardiac Enzymes 05/31/25 05/31/25 Range/Units 06:40 08:50 AST 24 (13-39) U/L Troponin I High Sens 3.1 3.2 (0-20) pg/ml CBC 05/31/25 Range/Units 06:40 WBC 6.53 (4.8-10.8) K/ul RBC 4.86 (4.70-6.10) M/uL Hgb 15.3 (14.0-18.0) g/dl Hct 43.9 (42.0-52.0) % Plt Count 258 (130-400) K/uL Neut # (Auto) 3.47 (1.40-6.50) K/uL Lymph # (Auto) 2.06 (1.20-3.40) K/uL [place] # (Auto) 0.62 H (0.11-0.59) K/uL Eos # (Auto) 0.30 (0.00-0.50) K/uL Baso # (Auto) 0.07 (0.00-0.20) K/uL Comprehensive Metabolic Panel 05/31/25 Range/Units 06:40 Sodium 141 (136-145) mmol/L Potassium 4.1 (3.5-5.1) mmol/L Chloride 110 H (98-107) mmol/L Carbon Dioxide 23 (21-32) mmol/L BUN 19 (6-23) mg/dl Creatinine 0.88 (0.6-1.4) mg/dl Glucose 101 H (70-99(Fasting)) mg/dl Calcium 9.0 (8.6-10.3) mg/dl AST 24 (13-39) U/L ALT 23 (7-52) U/L Alkaline Phosphatase 62 (34-104) U/L Total Protein 6.8 (6.0-8.3) gm/dl Albumin 4.3 (3.4-5.0) gm/dl Intake and Output 05/30/25 05/31/25 05/31/25 22:59 06:59 14:59 Intake Total 500 / 500 Balance 500 / 500 Intake: IV 500 / 500 Sodium Chloride 0.9% 500 ml @ 500 / 500 999 mls/hr IV .Q31M ONE Rx#: [id number] Other: # Unmeasured Voids 1 Weight 102 kg 98.43 kg Weight Measurement Method [facility] Patient Weight 06/01/25 06:59 Weight 98.43 kg Diagnostic Findings ZIO patch 05/08/25 obtained from [facility] Final Interpretation Patient had a min HR of 33 bpm, max HR of 197 bpm, and avg HR of 63 bpm. Predominant underlying rhythm was Sinus Rhythm. Slight P wave morphology changes were noted. 135 Ventricular Tachycardia runs occurred, the run with the fastest interval lasting 4 beats with a max rate of 197 bpm, the longest lasting 8 beats with an avg rate of 113 bpm. 129 Supraventricular Tachycardia runs occurred, the run with the fastest interval lasting 6 beats with a max rate of 162 bpm, the longest lasting 11.1 secs with an avg rate of 114 bpm. Idioventricular Rhythm was present. Supraventricular Tachycardia was detected within +/- 45 seconds of symptomatic patient event(s). Isolated SVEs were rare (<1.0%), SVE Couplets were rare (<1.0%), and SVE Triplets were rare (<1.0%). Isolated VEs were occasional (3.3%, 63707), VE Couplets were occasional (1.0%, 3216), and VE Triplets were rare (<1.0%, 435). Ventricular Bigeminy and Trigeminy were present. Five patient triggered events and 5 diary events were submitted for interpretation. The events correlated with sinus rhythm with sensed premature ventricular contractions and sinus rhythm with a brief run of supraventricular tachycardia. Summary: One hundred thirty-five brief runs of nonsustained ventricular tachycardia were observed, the longest of which was 8 beats in duration without associated subjective symptoms. One hundred thirty-five brief episodes of supraventricular tachycardia were observed. The majority of symptoms correlated with sinus rhythm and sensed premature ventricular contractions. Premature ventricular contractions were of moderate frequency, 3.3% PVC burden NELLIE 03/27/25 [facility] LVEF 50-55% Moderate AI Aortic regurgitation vena contracta 0.35-0.40xm suggesting moderate Aortic regurgitation The jet of aortic regurgitation is eccentric, directed towards the anterior mitral valve leaflet Aortic root mildly enlarged 4.1cm Echocardiogram February 24, 2025 The left ventricular cavity size is moderately enlarged. The LV wall thickness is mildly increased (concentric). There is borderline diffuse left ventricular hypokinesis. The qualitative LV ejection fraction is 50-54% (normal). The left ventricular diastolic function is abnormal by 2-D findings. The left atrium is severely enlarged (>48 ml/m^2,). Moderate 2 to 3 + aortic valve regurgitation is present. Mild mitral regurgitation is present. Mild tricuspid regurgitation is present. The estimated pulmonary artery systolic pressure is 36-40mm Hg. The proximal ascending thoracic aorta is mildly enlarged. (4.1 cm) Compared to last available study changes are noted as follows: Aortic insufficiency is now moderate Cardiac Cath [facility] 10/12/2020 Coronary angiography Left main: Left main coronary artery is normal in size and caliber. It bifurcated normally into the left anterior descending left circumflex arteries. There is no significant disease in this vessel Left anterior descending. Left anterior descending was a large somewhat patulous vessel with luminal regularities throughout its course. It produced a very high in large 1st diagonal branch, 2 medium additional diagonal branches. There is approximately 20% stenosis of the vessel between a large septal public relations manager in the 2nd diagonal branch. There is also a distal 50% stenosis. Left circumflex: Left circumflex was a large nondominant vessel. It produced for OM branches. There are luminal irregularities in this distribution but no discrete lesions. Right coronary artery: The right coronary artery was a large patulous vessel. There are luminal regularities throughout its course. However, there were no discrete flow-limiting lesions Impression: Right dominant coronary system Normal left ventricular end-diastolic pressure No evidence of aortic stenosis Nonobstructive coronary disease Coding Level of Care Code 33024 IN/OBS CONSULT LVL 5,80M Diagnoses Dizziness R42 Sinus bradycardia R00.1 Frequent PVCs I49.3 Nonsustained ventricular tachycardia I47.29 Moderate aortic regurgitation I35.1 Nonischemic dilated cardiomyopathy I42.0
[2025-05-31] MEDS: VALSARTAN/SACUBITRIL 26/24MG TAB PO SCH (11:22)
[2025-05-31] MEDS: MULTIVITAMIN TAB PO SCH (11:22)
[2025-05-31] MEDS: ATORVASTATIN 40 MG TAB PO SCH (11:22)
--- NOTE | 2025-05-31 15:52 | Discharge Summary ---
Date of Service May 31, 2025 Admission HPI Per Admitting Provider History obtained from interview with the patient, and discussion with the ED provider and review of the chart Past medical history of nonischemic cardiomyopathy with return to normal LV function, mild nonobstructive CAD, hypertension, hyperlipidemia, left anterior fascicular block, sinus bradycardia, minimally enlarged aortic root and ascending aorta, moderate aortic insufficiency, frequent ventricular ectopy, n onsustained ventricular tachycardia, BPH Patient has recently undergone Zio patch from May 08 to May 23, 2025; found to have 135 brief runs of NSVT with longest of which 8 beats in duration w ith no associated symptoms. 135 brief episodes of SVT were observed; the majority of symptoms correlated with sinus rhythm and sensed PVCs. 3.3% PVC burden Patient reports that he had episode of dizziness today morning around 5 AM; usually the dizziness will resolve when he lays down but it persisted today which prompted him to come to the ED. In the ED, he denies any dizziness, chest pain, shortness of breath at the present time. He has been following with cardiology regarding PVCs/SVT; was recently referred to EP. Admission Exam Per Admitting Provider On physical examination; Constitutional: WD/WN, vitals as above, NAD, sitting up in bed, pleasant, conversing easilyn Respiratory: normal respiratory effort, lungs clear to auscultation, no wheeze, rales, rhonchi. Normal insp/exp effort, no accessory muscle use Cardiovascular: RRR, no murmur, no edema Vessels: no JVD or carotid bruit Chest: normal inspection of chest Abdomen: normal bowel sounds, soft, nontender, no hepatosplenomegaly Musculoskeletal: no cyanosis or clubbing, extremities motor strength 5/5 Skin: no rashes, warm and dry normal turgor Neurologic: PERRL, EOMI, accommodation nl, no face palsy, no dysarthria CN's II- XI intact bilaterally and moves all extremities Psychiatric: A+Ox3, euthymic affect Principal Diagnosis 1. Dizziness 2. Sinus Bradycardia 3. Nonsustained ventricular tachycardia 4. Idioventricular rhythm. Discharge Exam Constitutional: WD/WN, vitals as above, NAD, sitting up in bed, pleasant, conversing easilyn Respiratory: normal respiratory effort, lungs clear to auscultation, no wheeze, rales, rhonchi. Normal insp/exp effort, no accessory muscle use Cardiovascular: RRR, no murmur, no edema Vessels: no JVD or carotid bruit Chest: normal inspection of chest Abdomen: normal bowel sounds, soft, nontender, no hepatosplenomegaly Musculoskeletal: no cyanosis or clubbing, extremities motor strength 5/5 Skin: no rashes, warm and dry normal turgor Neurologic: PERRL, EOMI, accommodation nl, no face palsy, no dysarthria CN's II- XI intact bilaterally and moves all extremities Psychiatric: A+Ox3, euthymic affect Discharge Data Allergies Allergy/AdvReac Type Severity Reaction Status Date / Time No Known Allergies Allergy Verified 03/27/25 07:10 Consultations 05/31/25 07:34 ED Decision to Admit Stat 05/31/25 08:18 Consult Cardiology Routine Hospital Course (1) Dizziness: Plan Assessment/plan Dizziness/presyncope History of PVCs/NSVT/SVT History of nonischemic cardiomyopathy Patient presents to the hospital due to episode of dizziness/presyncope. High sensitive troponin is negative X 2 Recent Zio patch results as above in HnP Echo in February 2025 shows EF of 50%; mildly concentric LVH, borderline diffuse left ventricular hypokinesis, left atrium severely enlarged, moderate 2-3+ aortic valve regurgitation. Proximal ascending thoracic aorta mildly enlarged to 4.1. Patient was admitted to the hospital and cardiology was consulted for comanage ment. Cardiology reviewed patient's recent Zio patch results, echocardiogram and discussed with cardiology electrophysiology. His telemetry findings and clinical symptoms were reassuring without significant change compared to previous personnel monitor performed as outpatient. Patient was discharged home; expedited electrophysiology appointment was set up for patient in next few days to discuss treatment option including implantation of permanent pacemaker. No medication changes were done Please note the above document was generated using voice recognition software. It may contain grammatical, syntax or spelling errors. Any formal questions or concerns about the content, text or information contained within the body of this dictation should be directly addressed to the provider for clarification Total Time Total Time Spent Total Time Spent (In Minutes): 45 Total Time Includes: Examination of the Patient, Discharge Planning, Medication Reconciliation, Communication With Other Providers and Other Discharge Plan Discharge Items Patient Disposition: Home - Self-Care Reason For Visit: DIZZINESS Discharge Diagnosis: Dizziness/presyncope History of PVCs/NSVT/SVT History of nonischemic cardiomyopathy Condition on Discharge: Fair Activity: Resume your previous activity Non-emergency contact: Primary Care Provider Call non-emergency contact if: you have any medication questions and your symptoms worsen Follow-up/Referrals: Xander Arnold, [Primary Care Provider] - Diet: Regular Addtl Attending Provider Instructions: You were admitted to the hospital for concern of irregular heart rhythm. You are evaluated by cardiology during the hospitalization. They recommend continuing the same medication that you are taking before. You have an appointment set up with cardiology EP Dr. Adams on Monday; please follow-up with her. Pending Studies at Discharge: No Stand-Alone Forms: My Grabbed, Smoking Cessation Medications and DC Order Prescriptions: Continued aspirin 81 mg tablet,delayed release (DR/EC) 81 mg PO QAM Patient Comments: 05/31- otc unable to verify multivitamin Tablet 1 tab PO QAM Patient Comments: 05/31- otc unable to verify terazosin 2 mg Capsule 2 mg PO HS sacubitril-valsartan [Entresto] 24-26 mg Tablet 1 tab PO BID Patient Comments: 03/18/25-still waiting for script to arrive in mail. atorvastatin 40 mg tablet 40 mg PO QAM metoprolol succinate 25 mg tablet extended release 24 hr 12.5 mg PO DAILY Discharge Orders: Discharge Order (Routine); Ordered 05/31/25 Ordered By: Solo Taylor Admission Data Admit Date/Time: 05/31/25 08:18 Attending Provider: Solo Taylor Admit Provider: Solo Taylor Primary Care Provider: Xander Arnold Other Providers: Solo Taylor; Buck Ortiz Other Interventions: Discharge Summary Assessment (RN) Last Done: 05/31/25 17:06
[2025-05-31] MEDS ORDERED: TERAZOSIN HCL 1 MG CAP PO SCH (21:00)
[2025-06-01] MEDS ORDERED: ASPIRIN 81 MG ECTAB PO SCH (09:00)
--- NOTE | 2025-06-03 09:56 | Electrocardiogram Report ---
Test Reason : Blood Pressure : */* mmHG Vent. Rate : 61 BPM Atrial Rate : 61 BPM P-R Int : 184 ms QRS Dur : 110 ms QT Int : 412 ms P-R-T Axes : 80 259 73 degrees QTcB Int : 414 ms Sinus rhythm Premature ventricular complexes Right superior axis deviation Low voltage QRS Cannot rule out Anterior infarct , age undetermined Abnormal ECG When compared with ECG of 21-Nov-2023 14:27, No significant change Confirmed by Cam Payan ([id number]) on 06/03/2025 9:56:21 AM Referred By: REFERRED SELF Confirmed By: Cam Payan
== END 2025-05-31 17:35 | disposition home or self-care (01) | DRG 309 ==
LOC: ED 06:19 → INTOOBSV 08:18 → 2S 08:18